=== PATIENT | male | born 1925 | race Caucasian/White ===

== ENCOUNTER 2017-02-20 16:35 | Emergency (ER) | payer OTHER, BC ==
[~2017-02-20] VITALS: Ht 160 cm; Wt 67.1 kg
[2017-02-20 16:37] VITALS: BP 134/94
--- NOTE | 2017-02-20 16:38 | NUR ---
Patient BIBA to ER Bed 3.
--- NOTE | 2017-02-20 16:51 | NUR ---
PT BIBA S/P FALL W/HEMATOMA NOTED TO RIGHT OCCIPITAL REGION.HAS A SMALL CUT;NO ACTIVE BLEEDING AT THIS TIME; PT DENIES ANY MEDICAL HX.DENIES LOC; DENIES N/V/D; SKIN IS PINK/WARM/DRY; AAOX4 WITH EVEN AND STEADY GAIT; LUNGS CLEAR BL; HR EVEN AND REGULAR; PT DENIES ANY FEVER, CP, SOB AT THIS TIME; PATIENT STATES PAIN OF 3/10 AT THIS TIME;PATIENT POSITIONED FOR COMFORT; HOB ELEVATED; BEDRAILS UP X2; BED DOWN. ER MD MADE AWARE OF PT STATUS.
--- NOTE | 2017-02-20 17:04 | NUR ---
WENT TO CT SCAN ACCOMPANIED BY TECH
--- NOTE | 2017-02-20 17:11 | NUR ---
BACK FROM CT SCAN ACCOMPANIED BY TIMOTHY.
--- NOTE | 2017-02-20 17:18 | NUR ---
DR LEYVA AT BEDSIDE.
[2017-02-20] MEDS ORDERED: BACITRACIN OINT 500 UNITS/GM PKT TP ONE (17:20)
[2017-02-20 18:43] VITALS: BP 144/50
== END 2017-02-20 18:43 | disposition home or self-care (01) ==
LOC: MED 16:35
DX: S00.01XA Abrasion of scalp, initial encounter (principal); W18.39XA Other fall on same level, initial encounter; Y93.89 Activity, other specified; Y92.89 Other specified places as the place of occurrence of the external cause; Y99.8 Other external cause status; S06.2X0A Diffuse traumatic brain injury without loss of consciousness, initial encounter
CPT/HCPCS: 70450; 99284